=== PATIENT | female | born 1995 | race Caucasian/White ===

== ENCOUNTER → 2018-09-08 16:36 | Outpatient (CLI) | payer OTHER, SELFPAY ==
[2016-09-11 04:17] VITALS: BMI 28.2
== END ==
PROVIDERS: Family Provider Family Medicine; PCP Family Medicine; Referring Provider Obstetrics & Gynecology; Visit Provider Obstetrics & Gynecology
DX: Z12.4 Encounter for screening for malignant neoplasm of cervix (principal)

== ENCOUNTER 2021-04-17 15:24 | Emergency (ER) | payer OTHER, SELFPAY ==
[2021-04-17 15:25] VITALS: BP 148/82; PULSE 80; RESP 16; TEMP 36; O2SAT 100; BMI 25.9
[2021-04-17 15:27] VITALS: BP 148/82; PULSE 84; RESP 16; TEMP 36; O2SAT 100
--- NOTE | 2021-04-17 15:31 | EKG12_ITS ---
Test Reason : CP Blood Pressure : / mmHG Vent. Rate : 072 BPM Atrial Rate : 072 BPM P-R Int : 156 ms QRS Dur : 074 ms QT Int : 378 ms P-R-T Axes : 063 078 045 degrees QTc Int : 413 ms Normal sinus rhythm Normal ECG Confirmed by ANA MARC, DAWSON ([id number]), legal editor ALEXIA MONTENEGRO ([id number]) on 04/20/2021 10:58:46 AM Referred By: BB/FELICITY Confirmed By:DAWSON PEREZ MD
--- NOTE | 2021-04-17 16:09 | RAD_ITS ---
STUDY: X-RAY CHEST REASON FOR EXAM: Female, 26 years old. Atypical chest pain TECHNIQUE: Single AP portable view of the chest. COMPARISON: None. FINDINGS: The lungs are clear and expanded. There is no demonstrated pleural abnormality. Normal size heart. Normal mediastinum and marielle. Normal visualized pulmonary arteries. Normal visualized aortic arch and descending thoracic aorta. Normal visualized thoracic spine. Normal visualized ribs, clavicles, and shoulders. There is no demonstrated abnormality of the visualized soft tissue structures of the upper abdomen. RAD/Chest 1 View (Portable) IMPRESSION: Normal x-ray examination of the chest. Electronically Signed: Zaheer Miguel MD at 16:23 EST ,
--- NOTE | 2021-04-17 16:57 | EDS_ITS ---
HPI History of Present Illness Chief Complaint: Chest Pain Narrative Narrative: 26-year-old female otherwise healthy presenting with chest pain on the right side. She states started about 4 days ago. Is been intermittent. She describes it as sharp. She denies any diaphoresis, nausea, shortness of breath. She is unsure if she did something at work pulling something. She states it radiates into her right shoulder blade. Patient has no history of DVT/PE. She is on control. Patient states she asked her mother who is a nurse what to do and she told her to go to the emergency room because her mother has a history of a blood clot. Patient does not know if it was a DVT or a PE. She does not know if it is provoked or unprovoked. Patient does not have any cardiac history. No fever, chills, cough. PFSH PFSH Medical History Non-smoker Home Medications ferrous sulfate [Iron (ferrous sulfate)] 325 mg PO BID 09/08/16 [History Last Taken 09/10/16] vit,[id number] [Prenatabs FA] 1 tab PO DAILY 09/08/16 [History Last Taken 09/10/16] Ibuprofen [Motrin] 800 mg PO TID PRN PRN #30 tab 09/11/16 [Rx Last Taken Unknown] oxycodone 5 - 10 mg PO Q4H PRN PRN #30 tab 09/11/16 [Rx Last Taken Unknown] Allergy/AdvReac Type Severity Reaction Status Date / Time No Known Allergies Allergy Verified 09/08/16 20:39 Social History Smoking Status: Never smoker ROS ROS ED Constitutional Constitutional ED: Denies chills or fever(s) Eyes Eyes: Denies blurry vision or change in vision ENT ENT ED: Denies rhinorrhea or sore throat Cardiovascular Cardiovascular: Reports as per HPI Respiratory/Chest Respiratory/Chest: Denies cough, dyspnea or dyspnea on exertion Gastrointestinal Gastrointestinal: Denies abdominal pain, constipation, diarrhea, nausea or vomiting Genitourinary Genitourinary ED: Denies dysuria or hematuria Musculoskeletal Musculoskeletal: Denies arthralgias or myalgias Integumentary Denies Abrasions or rash Neurologic Neurologic: Denies headache(s), paresthesias or weakness Psychiatric Psychiatric: Denies anxiety or depression EXAM Physical Exam Const Vital Signs: 04/17/21 15:25 04/17/21 15:27 04/17/21 17:33 Temperature 96.8 F L 96.8 F L Temperature Source Temporal Temporal Pulse Rate 80 84 Respiratory Rate 16 16 Blood Pressure 148/82 H 148/82 H Blood Pressure Mean 104 104 Pulse Ox 100 100 100 Oxygen Delivery Method Room Air Room Air Room Air 04/17/21 17:35 04/17/21 19:06 Temperature Temperature Source Pulse Rate 80 70 Respiratory Rate 17 14 Blood Pressure 125/80 H 141/93 H Blood Pressure Mean 95 Pulse Ox 97 100 Oxygen Delivery Method Room Air Positive well nourished General Appearance ED: NAD; Negative for pallor HEENT Reports moist mucous membranes normocephalic and atraumatic Eyes PERRL and EOMs intact bilaterally General Eye ED: Negative for pale conjunctiva or scleral icterus Resp normal respiratory effort Effort and Inspection: respiratory distress Cardio regular rate and regular rhythm Neuro oriented x3 and CN's II-XII intact bilaterally Sensorium / Orientation: awake and alert Psych mental status grossly normal Skin no rashes or lesions noted General Skin Exam: Negative for jaundice or pallor Heart Score History: Slightly/Non-Suspicious ECG: Normal Age: </= 45 years Risk Factors: No Risk Factors Troponin: </= Normal Limit Score: 0 MDM MDM MDM Narrative Medical decision making narrative: Patient presenting with chest pain on the right side. She has no other associated symptoms. She is on control so I cannot PERC her. Clinically lower her oxygen 100%, respiratory rate 16, pulse 80. I have a low suspicion for PE and will obtain a D-dimer. EKG on my interpretation shows a sinus rhythm with a ventricular rate of 72 bpm without sign of ischemic change or dysrhythmia. Chest x-ray on my interpretation shows no acute cardiopulmonary process and the radiologist does agree. CBC, BMP are unremarkable. High-sensitivity troponin is normal 9. Patient is otherwise young and healthy and I have low suspicion for cardiac source and I do not believe she needs a repeat troponin. I did obtain a D-dimer which was elevated at 1.00 and she had a CTA of the chest which was negative for PE or dissection. There is no other acute process noted on the CTA interpreted by the radiologist. At this point I feel the patient is stable to be discharged home. It is recommended that she follow-up with her PCP. Impression: 1. Chest pain, noncardiac Lab Data Labs: Laboratory Results - last 24 hr 04/17/21 04/17/21 04/17/21 17:29 17:29 17:29 WBC 7.3 RBC 4.04 L Hgb 11.7 L Hct 36.1 L MCV 89.4 MCH 29.0 MCHC 32.4 RDW Std Deviation 45.0 H RDW Coeff of Sharee 13.7 Plt Count 197 MPV 11.0 Immature Gran % (Auto) 0.300 Neut % (Auto) 49.5 Lymph % (Auto) 42.5 H [place] % (Auto) 6.2 Eos % (Auto) 1.2 Baso % (Auto) 0.3 Absolute Neuts (auto) 3.6 Absolute Lymphs (auto) 3.09 Nucleated RBC % 0 D-Dimer Quant (PE/DVT) 1.00 H* Sodium 136 Potassium 3.4 L Chloride 107 Carbon Dioxide 24.0 Anion Gap 5 BUN 9 Creatinine 0.70 Estim Creat Clear Calc 102.51 Est GFR (MDRD) Af Amer 132 Est GFR (MDRD) Non-Af 109 BUN/Creatinine Ratio 12.9 Glucose 87 Calcium 8.7 Troponin I High Sens 9 Radiography Diagnostic Testing: Clinical Impression(s) from Imaging Studies Chest X-Ray 04/17/21 16:09 IMPRESSION: Normal x-ray examination of the chest. Electronically Signed: Zaheer Miguel MD at 16:23 EST Reading Location ID and State: [address] [place] [address] , Service support , Chest CTA 04/17/21 18:21 IMPRESSION: Normal CTA chest examination, without a demonstrated pulmonary embolism or arterial dissection. Electronically Signed: Joseph Kessler DO at 18:54 EST Reading Location ID and State: [address] [place] [address] Tel [phone], Service support , Discharge Plan Triage Chief Complaint: Chest Pain ED Provider: Juan F Cardoza Dx/Rx/DC Orders Instructions: ED Chest Pain, Noncardiac Prescriptions: No Action ferrous sulfate [Iron (ferrous sulfate)] 325 MG tablet 325 mg PO BID RF: 0 [id number] [Prenatabs FA] 1 TABLET tablet 1 tab PO DAILY RF: 0 oxycodone 5 MG tablet 5 - 10 mg PO Q4H PRN PRN (Reason: Mod-Severe Pain (-11/16)) Qty: 30 RF: 0 Ibuprofen [Motrin] 800 MG tablet 800 mg PO TID PRN PRN (Reason: pain or cramping) Qty: 30 RF: 1 Primary Care Provider: Inge Mcgill Referrals: Inge Mcgill DO [Primary Care Provider] - Disposition Disposition: Home, Self Care Discharge Date/Time: 04/17/21 19:10
[2021-04-17 17:33] VITALS: O2SAT 100
[2021-04-17 17:35] VITALS: BP 125/80; PULSE 80; RESP 17; O2SAT 97
[2021-04-17 17:37] LABS: Absolute Lymphocyte Count 3.09 X10^3/uL (0.83-4.51); Absolute Neutrophil Count 3.6 X10^3/uL (2.0-7.7); Basophil# 0.02 X10^3/uL; Basophil% 0.3 % (0-1); Eosinophil# 0.09 X10^3/uL; Eosinophils% 1.2 % (0-5); Hematocrit 36.1 % (37-47); Hemoglobin 11.7 g/dL (12.0-15.0); Lymphocyte # 3.09 X10^3/ul (0.83-4.51); Lymphocyte % 42.5 % (19-41); Mean Corp Hgb Conc 32.4 g/dL (32-36); Mean Corpuscular Volume 89.4 fL (81-99); Monocyte# 0.45 X10^3/uL; Monocyte% 6.2 % (0-10); NRBC Flagged by Analyzer 0 % (0-5); Neutrophil % 49.5 % (47-70); Platelet Count 197 K/mm3 (150-450); RBC Distribution Width CV 13.7 % (11.6-14.6); Red Blood Count 4.04 M/mm3 (4.2-5.4); White Blood Count 7.3 K/mm3 (4.4-11.0)
[2021-04-17 17:50] LABS: Anion Gap 5 (5-15); BUN 9 mg/dL (7-18); BUN/Creat Ratio 12.9 RATIO (10-20); Calcium,Total 8.7 mg/dL (8.5-10.1); Chloride 107 mmol/L (98-107); EST Glomerular Filtration Rate 109 mL/min (>60); Est Glom Filt Rate - Afr Amer 132 mL/min (>60); Estimated Creatinine Clearance 102.51 ml/min; Glucose 87 mg/dL (74-106); Potassium 3.4 mmol/L (3.5-5.1); Sodium Level 136 mmol/L (136-145); Troponin-I HS 9 pg/mL (3.0-54.0)
--- NOTE | 2021-04-17 18:21 | CT_ITS ---
STUDY: CTA CHEST REASON FOR EXAM: Female, 26 years old. Chest pain. Right-sided chest pain for 4 days radiating into the back. Elevated d-dimer. RADIATION DOSAGE (If Supplied By Facility): CTDIvol = ( 3.45 ) mGy, DLP = ( 130.48 ) mGycm TECHNIQUE: The examination was performed with the intravenous administration of IV 100mL Isovue-370. Post-processing of the angiographic images was performed, with multiplanar reformation and 3D reconstruction. Individualized dose optimization techniques were used for this CT. COMPARISON: Chest, 04/17/2021. FINDINGS: Normal enhancement of the main pulmonary artery and right and left pulmonary arteries. Normal enhancement of the bilateral peripheral pulmonary arteries. There is no demonstrated pulmonary embolism. Normal thoracic aorta and visualized great vessels. There is no demonstrated aortic dissection. Normal heart and pericardium. Normal mediastinum. Normal hilar regions. Normal visualized trachea and bronchi. The lungs are well expanded. Normal pulmonary parenchyma. Normal pleura. Normal chest wall structures. Normal osseous structures. Normal visualized upper abdomen. CT/CTA Chest W/WO Contrast IMPRESSION: Normal CTA chest examination, without a demonstrated pulmonary embolism or arterial dissection. Electronically Signed: Joseph Kessler DO at 18:54 EST ,
[2021-04-17 19:06] VITALS: BP 141/93; PULSE 70; RESP 14; O2SAT 100
== END 2021-04-17 19:10 | disposition home or self-care (01) ==
PROVIDERS: Emergency Provider Student in an Organized Health Care Education/Training Program; PCP Family Medicine; Visit Provider Student in an Organized Health Care Education/Training Program
DX: R07.89 Other chest pain (principal)
CPT/HCPCS: 71045; 71275; 80048; 84484; 85025; 85379; 93005; 99284; Q9967; A4216

== ENCOUNTER → 2021-10-13 | Outpatient (CLI) | payer OTHER, SELFPAY ==
[2021-10-13 13:04] LABS: hCG Titer Quant., Serum 1 mIU/mL (1-3)
== END | disposition home or self-care (01) ==
LOC: WOBLAB 11:46
PROVIDERS: PCP Family Medicine; Visit Provider Obstetrics & Gynecology
DX: N91.2 Amenorrhea, unspecified (principal)
CPT/HCPCS: 36415; 84702; 86850; 86900; 86901

== ENCOUNTER → 2022-01-26 | Outpatient (CLI) | payer OTHER, SELFPAY ==
[2022-01-26 17:28] LABS: Absolute Lymphocyte Count 2.34 X10^3/uL (0.83-4.51); Basophil# 0.02 X10^3/uL; Basophil% 0.3 % (0-1); Eosinophil# 0.07 X10^3/uL; Eosinophils% 0.9 % (0-5); Hematocrit 38.6 % (37-47); Hemoglobin 12.3 g/dL (12.0-15.0); Lymphocyte # 2.34 X10^3/ul (0.83-4.51); Lymphocyte % 29.7 % (19-41); Mean Corp Hgb Conc 31.9 g/dL (32-36); Mean Corpuscular Hgb 28.8 pg (27.0-32.0); Mean Corpuscular Volume 90.4 fL (81-99); Mean Platelet Vol. 11.3 fl (6.2-12.0); Monocyte# 0.42 X10^3/uL; Monocyte% 5.3 % (0-10); NRBC Flagged by Analyzer 0 % (0-5); Neutrophil % 63.5 % (47-70); Platelet Count 230 K/mm3 (150-450); RBC Distribution Width CV 14.2 % (11.6-14.6); RBC Distribution Width SD 47.2 fl (35.1-43.9); Red Blood Count 4.27 M/mm3 (4.2-5.4); White Blood Count 7.9 K/mm3 (4.4-11.0)
[2022-01-26 19:23] LABS: HIV - WCH Non-Reactive (Nonreactive); Hepatitis B Surface Antigen Non-Reactive (Nonreactive); Hepatitis C Antibody Non-Reactive (Nonreactive); Rubella IgG Reactive (Nonreactive); Syphilis Antibodies Non-reactive
[2022-01-26 20:12] LABS: Chlamydia Trachomatis by PCR Negative (Negative); Neisserai gonorrhoeae by PCR Negative (Negative); Probe Check PASS; Sample Adequacy Control PASS; Specimen Processing Control PASS
[2022-01-28 16:24] LABS: V-Zoster IgG (Immunity) < 135 index (Immune >165)
[2022-02-04 21:09] LABS: HPV Reflexed? NOT INDICATED
== END | disposition home or self-care (01) ==
LOC: WOBLAB 15:27
PROVIDERS: PCP Family Medicine; Visit Provider Student in an Organized Health Care Education/Training Program
DX: Z34.81 Encounter for supervision of other normal pregnancy, first trimester (principal); Z11.3 Encounter for screening for infections with a predominantly sexual mode of transmission; Z12.4 Encounter for screening for malignant neoplasm of cervix
CPT/HCPCS: 36415; 85025; 86703; 86762; 86780; 86787; 86803; 87086; 87088; 87186; 87340; 87491; 87591; 88175; G0145

== ENCOUNTER → 2022-02-24 | Outpatient (CLI) | payer OTHER, MEDICAID, SELFPAY | END | disposition home or self-care (01) | LOC: LABSPEC 11:06 | PROVIDERS: PCP Family Medicine; Visit Provider Student in an Organized Health Care Education/Training Program | DX: R30.0 Dysuria (principal) | CPT/HCPCS: 87086; 87088 ==

== ENCOUNTER 2022-03-11 21:33 | Emergency (ER) | payer OTHER, MEDICAID, SELFPAY ==
[2022-03-11 21:34] VITALS: BP 130/99; PULSE 75; RESP 15; TEMP 36.4; O2SAT 98; BMI 25.3
--- NOTE | 2022-03-11 21:57 | ED.VIS.GI ---
HPI HPI - GI History of Present Illness Chief Complaint: GI Bleed Informant: patient Abdominal Pain/Flank Pain Onset: Hours (1) Context: Gradual Onset (after meal) Timing: Continuous Current Severity: Gone Maximum Severity: Moderate Worsened by: Nothing Relieved by: - (after vomiting) Nausea/Vomiting/Emesis GI Symptom: Positive for Nausea and Vomiting Quality: Positive for Nonbilious and Blood streaks (possiblly) Episodes: 1 Diarrhea/Melena/Hematochezia GI Symptom: Positive for - (last BM today, nml); Negative for Diarrhea, Melena or Hematochezia Associated Symptoms Associated Symptoms: Negative for Dysuria, Frequency, Hematuria or Urgency Narrative Narrative: Patient is 12-13 weeks , she had an ultrasound verifying a single live intrauterine this past week. She has been having a lot of morning sickness but that has been much better now for the past 2 weeks. Tonight she had some cheese bread, shortly thereafter she had some upper abdominal discomfort in the middle followed by 1 episode of vomiting, there was some red in it that look like several chunks of blood clots. She states she had marinara sauce with her cheese bread. She states her mother looked at it and said it was doubtful that it was the marinara that it was more likely blood. Patient states her abdominal discomfort is better now, she feels a little nauseated but not much. She states she was diagnosed with gastritis versus peptic ulcer in the past, and she was put on Prilosec this is before she was , she never had an EGD or hematemesis/bright red blood per rectum or melena and she has had none of that now. PFSH PFSH Medical History Non-smoker Medical History no medical history Home Medications ferrous sulfate 325 mg (65 mg iron) tablet (Iron (ferrous sulfate)) 325 mg PO BID anemia 09/08/16 [History Last Taken 09/10/16] vits,calcium no.78-iron fumarate-folic acid 29 mg-1 mg tablet (Prenatabs FA) 1 tab PO DAILY 09/08/16 [History Last Taken 09/10/16] Ibuprofen [Motrin] 800 mg PO TID PRN PRN pain or cramping #30 tabs 09/11/16 [Rx Last Taken Unknown] oxycodone 5 mg tablet 5 - 10 mg PO Q4H PRN PRN Mod-Severe Pain (4-11/16) #30 tabs 09/11/16 [Rx Last Taken Unknown] famotidine 40 mg tablet 40 mg PO DAILY #14 tabs 03/11/22 [Rx Last Taken Unknown] Allergy/AdvReac Type Severity Reaction Status Date / Time No Known Allergies Allergy Verified 03/11/22 21:34 Social History Smoking Status: Never smoker ROS ROS ED Constitutional Constitutional ED: Denies chills or fever(s) Eyes Eyes: Denies change in vision or diplopia ENT ENT ED: Denies rhinorrhea or sore throat Cardiovascular Cardiovascular: Denies chest pain or palpitations Respiratory/Chest Respiratory/Chest: Denies cough or dyspnea Gastrointestinal Gastrointestinal: Reports as per HPI, abdominal pain, nausea and vomiting; Denies diarrhea Genitourinary Genitourinary ED: Reports other Details: No vaginal bleeding or discharge ; Denies dysuria or hematuria Musculoskeletal Musculoskeletal: Denies back pain or neck pain Integumentary Denies abscess or rash Neurologic Neurologic: Denies headache(s), paresthesias or weakness Psychiatric Psychiatric: Denies anxiety or suicidal thoughts EXAM Physical Exam Const Vital Signs: 03/11/22 21:34 Temperature 97.6 F L Temperature Source Temporal Pulse Rate 75 Respiratory Rate 15 Blood Pressure 130/99 H Blood Pressure Mean 109 Pulse Ox 98 Oxygen Delivery Method Room Air Positive well nourished and well developed Constitutional Narrative: Well-appearing General Appearance ED: well developed and NAD HEENT Reports moist mucous membranes normocephalic and atraumatic Eyes PERRL and EOMs intact bilaterally Neck full ROM and supple Resp normal respiratory effort and clear to auscultation bilaterally Cardio regular rate, regular rhythm and no murmurs Rate: Negative for tachycardic GI non-tender and non-distended Auscultation: normoactive bowel sounds Palpation: soft Back/Spine no CVA tenderness General Back: other FROM Extremity normal to inspection General Extremety ED: Negative for edema, pulses abnormal or tenderness General Extremity: Negative for edema or pulses abnormal Neuro oriented x3, CN's II-XII intact bilaterally and no sensory deficits noted Sensorium / Orientation: awake and alert Motor Exam: strength 5/5 throughout Skin no rashes or lesions noted and no wounds MDM MDM MDM Narrative Medical decision making narrative: CBC and BMP obtained, patient is not anemic from any acute blood loss, and her chemistry is normal. This basically suggest that she is not having hemodynamically significant upper GI bleeding, it does not rule it out. I discussed that with her. It certainly is possible that she did have gastritis with bleeding and it is also possible that she vomited up marinara and no blood. Regardless I think it would be reasonable to put her on Pepcid for least 2 weeks and have her follow-up, given that she is . She was given a dose here, she remained clinically and hemodynamically stable for discharge given a prescription. She is comfortable with that plan. Lab Data Attestation: I reviewed the patient's lab results. Labs: Laboratory Results - last 24 hr 03/11/22 03/11/22 22:15 22:15 WBC 7.9 RBC 4.11 L Hgb 12.1 Hct 36.3 L MCV 88.3 MCH 29.4 MCHC 33.3 RDW Std Deviation 45.2 H RDW Coeff of Sharee 14.0 Plt Count 192 MPV 11.0 Immature Gran % (Auto) 0.400 Neut % (Auto) 66.5 Lymph % (Auto) 27.0 [place] % (Auto) 5.2 Eos % (Auto) 0.5 Baso % (Auto) 0.4 Absolute Neuts (auto) 5.2 Absolute Lymphs (auto) 2.13 Nucleated RBC % 0 Sodium 138 Potassium 3.9 Chloride 108 H Carbon Dioxide 24.0 Anion Gap 6 BUN 10 Creatinine 0.54 L Estim Creat Clear Calc 131.74 Est GFR (MDRD) Af Amer 175 Est GFR (MDRD) Non-Af 145 BUN/Creatinine Ratio 18.4 Glucose 101 Calcium 8.6 Discharge Plan Triage Chief Complaint: GI Bleed ED Provider: Oli Martinez Dx/Rx/DC Orders Clinical Impression: Hematemesis, First trimester Instructions: ED Gastritis (Adult), ED Upper GI Bleeding (Stable) Prescriptions: New famotidine 40 mg tablet 40 mg PO DAILY Qty: 14 0RF No Action ferrous sulfate [Iron (ferrous sulfate)] 325 MG tablet 325 mg PO BID vit,[id number] [Prenatabs FA] 1 TABLET tablet 1 tab PO DAILY oxycodone 5 MG tablet 5 - 10 mg PO Q4H PRN PRN (Reason: Mod-Severe Pain (4-11/16)) Qty: 30 0RF Ibuprofen [Motrin] 800 MG tablet 800 mg PO TID PRN PRN (Reason: pain or cramping) Qty: 30 1RF Primary Care Provider: Inge Mcgill Referrals: Inge Mcgill DO [Primary Care Provider] - 1 Week Disposition Disposition: Home, Self Care
[2022-03-11] MEDS: Famotidine 20 MG Tablet 40 MG PO (22:14)
[2022-03-11] MEDS: Ondansetron ODT 4 MG Tablet 8 MG PO (22:14)
[2022-03-11 22:24] LABS: Absolute Lymphocyte Count 2.13 X10^3/uL (0.83-4.51); Absolute Neutrophil Count 5.2 X10^3/uL (2.0-7.7); Basophil# 0.03 X10^3/uL; Basophil% 0.4 % (0-1); Eosinophil# 0.04 X10^3/uL; Eosinophils% 0.5 % (0-5); Hematocrit 36.3 % (37-47); Hemoglobin 12.1 g/dL (12.0-15.0); Lymphocyte # 2.13 X10^3/ul (0.83-4.51); Mean Corp Hgb Conc 33.3 g/dL (32-36); Mean Corpuscular Hgb 29.4 pg (27.0-32.0); Mean Corpuscular Volume 88.3 fL (81-99); Monocyte# 0.41 X10^3/uL; Monocyte% 5.2 % (0-10); NRBC Flagged by Analyzer 0 % (0-5); Neutrophil # 5.24 X10^3/uL (2.7-7.7); Neutrophil % 66.5 % (47-70); Platelet Count 192 K/mm3 (150-450); RBC Distribution Width SD 45.2 fl (35.1-43.9); Red Blood Count 4.11 M/mm3 (4.2-5.4); White Blood Count 7.9 K/mm3 (4.4-11.0)
[2022-03-11 22:35] LABS: Anion Gap 6 (5-15); BUN 10 mg/dL (7-18); BUN/Creat Ratio 18.4 RATIO (10-20); Calcium,Total 8.6 mg/dL (8.5-10.1); Chloride 108 mmol/L (98-107); Creatinine, Serum 0.54 mg/dL (0.55-1.02); EST Glomerular Filtration Rate 145 mL/min (>60); Est Glom Filt Rate - Afr Amer 175 mL/min (>60); Estimated Creatinine Clearance 131.74 ml/min; Glucose 101 mg/dL (74-106); Potassium 3.9 mmol/L (3.5-5.1); Sodium Level 138 mmol/L (136-145)
== END 2022-03-11 22:50 | disposition home or self-care (01) ==
PROVIDERS: Emergency Provider Emergency Medicine; PCP Family Medicine; Visit Provider Emergency Medicine
DX: O99.611 Diseases of the digestive system complicating pregnancy, first trimester (principal); O21.0 Mild hyperemesis gravidarum; Z3A.12 12 weeks gestation of pregnancy; K92.0 Hematemesis
CPT/HCPCS: 80048; 85025; 99283; A4216

== ENCOUNTER → 2022-06-14 | Outpatient (CLI) | payer MEDICAID, SELFPAY ==
[2022-06-14 11:50] LABS: Absolute Lymphocyte Count 2.07 X10^3/uL (0.83-4.51); Absolute Neutrophil Count 8.4 X10^3/uL (2.0-7.7); Basophil# 0.03 X10^3/uL; Basophil% 0.3 % (0-1); Eosinophil# 0.08 X10^3/uL; Eosinophils% 0.7 % (0-5); Hematocrit 34.4 % (37-47); Hemoglobin 11.1 g/dL (12.0-15.0); Lymphocyte # 2.07 X10^3/ul (0.83-4.51); Lymphocyte % 18.4 % (19-41); Mean Corp Hgb Conc 32.3 g/dL (32-36); Mean Platelet Vol. 11.8 fl (6.2-12.0); Monocyte# 0.59 X10^3/uL; Monocyte% 5.2 % (0-10); NRBC Flagged by Analyzer 0 % (0-5); Neutrophil # 8.44 X10^3/uL (2.7-7.7); Neutrophil % 74.8 % (47-70); Platelet Count 200 K/mm3 (150-450); RBC Distribution Width CV 13.6 % (11.6-14.6); RBC Distribution Width SD 46.8 fl (35.1-43.9); White Blood Count 11.3 K/mm3 (4.4-11.0)
[2022-06-14 11:54] LABS: Glucose Challenge Gest 1H 50g 103 mg/dL (70-140)
[2022-06-14 12:18] LABS: Syphilis Antibodies Non-reactive
== END | disposition home or self-care (01) ==
PROVIDERS: PCP Family Medicine; Visit Provider Nurse Practitioner Women's Health
DX: Z34.82 Encounter for supervision of other normal pregnancy, second trimester (principal); R73.02 Impaired glucose tolerance (oral)
CPT/HCPCS: 36415; 82950; 85025; 86780

== ENCOUNTER → 2022-08-02 | Outpatient (CLI) | payer MEDICAID, SELFPAY ==
--- NOTE | 2022-08-02 10:57 | US_ITS ---
STUDY: ULTRASOUND BREAST - RIGHT REASON FOR EXAM: Female, 27 years old. Palpable lump in the inferior aspect of the alveolus of the right breast. Patient is 33 weeks . TECHNIQUE: Axial and longitudinal images of the RIGHT breast were performed with a high resolution ultrasound transducer. # OF IMAGES: 11 COMPARISON: None. FINDINGS: RIGHT Breast: The retroareolar region of the right breast was examined with ultrasound. There is evidence of dilated subareolar ducts. US/Breast Limited Unilateral IMPRESSION: Dilated subareolar ducts. ASSESSMENT CATEGORY: BIRADS Category 2: Benign. A letter regarding these results will be sent to the patient by the facility within 30 days. Electronically Signed: Meek Kemp MD at 9:55 EDT ,
== END | disposition home or self-care (01) ==
LOC: OPUS 10:49
PROVIDERS: PCP Family Medicine; Referring Provider Student in an Organized Health Care Education/Training Program; Visit Provider Student in an Organized Health Care Education/Training Program
DX: N63.15 Unspecified lump in the right breast, overlapping quadrants (principal)
CPT/HCPCS: 76642

== ENCOUNTER → 2022-08-13 | Outpatient (CLI) | payer MEDICAID, SELFPAY | END | disposition home or self-care (01) | LOC: LABSPEC 14:09 | PROVIDERS: PCP Family Medicine; Visit Provider Obstetrics & Gynecology | DX: N39.0 Urinary tract infection, site not specified (principal) | CPT/HCPCS: 87077; 87086; 87088; 87186 ==

== ENCOUNTER → 2022-08-24 | Outpatient (CLI) | payer MEDICAID, SELFPAY ==
[2022-08-24 11:45] LABS: Absolute Lymphocyte Count 1.63 X10^3/uL (0.83-4.51); Absolute Neutrophil Count 6.5 X10^3/uL (2.0-7.7); Basophil# 0.02 X10^3/uL; Basophil% 0.2 % (0-1); Eosinophil# 0.05 X10^3/uL; Eosinophils% 0.6 % (0-5); Hemoglobin 10.6 g/dL (12.0-15.0); Lymphocyte # 1.63 X10^3/ul (0.83-4.51); Lymphocyte % 18.7 % (19-41); Mean Corp Hgb Conc 31.2 g/dL (32-36); Mean Corpuscular Hgb 26.8 pg (27.0-32.0); Mean Corpuscular Volume 86.1 fL (81-99); Mean Platelet Vol. 12.3 fl (6.2-12.0); Monocyte# 0.42 X10^3/uL; Monocyte% 4.8 % (0-10); NRBC Flagged by Analyzer 0 % (0-5); Neutrophil # 6.52 X10^3/uL (2.7-7.7); Neutrophil % 74.9 % (47-70); Platelet Count 191 K/mm3 (150-450); RBC Distribution Width CV 13.7 % (11.6-14.6); RBC Distribution Width SD 42.6 fl (35.1-43.9); Red Blood Count 3.95 M/mm3 (4.2-5.4); White Blood Count 8.7 K/mm3 (4.4-11.0)
[2022-08-24 12:13] LABS: Syphilis Antibodies Non-reactive
== END | disposition home or self-care (01) ==
LOC: WOBLAB 11:03
PROVIDERS: PCP Family Medicine; Visit Provider Student in an Organized Health Care Education/Training Program
DX: Z34.83 Encounter for supervision of other normal pregnancy, third trimester (principal)
CPT/HCPCS: 36415; 85025; 86780; 87081

== ENCOUNTER 2022-09-14 05:00 | Inpatient (IN) | payer MEDICAID, SELFPAY ==
[2022-09-14] VITALS (20 sets, daily range): BP systolic 105–128; BP diastolic 52–84; PULSE 65–118; RESP 14–16; TEMP 36.1–36.6; O2SAT 94–100; BMI 28.8
[2022-09-14] MEDS: Lactated Ringers 1,000 ML 999 ML IV ×2 (05:20→16:08)
[2022-09-14 05:36] LABS: Absolute Lymphocyte Count 2.57 X10^3/uL (0.83-4.51); Absolute Neutrophil Count 5.6 X10^3/uL (2.0-7.7); Basophil# 0.01 X10^3/uL; Basophil% 0.1 % (0-1); Eosinophil# 0.07 X10^3/uL; Eosinophils% 0.8 % (0-5); Hematocrit 31.7 % (37-47); Hemoglobin 10.3 g/dL (12.0-15.0); Lymphocyte # 2.57 X10^3/ul (0.83-4.51); Lymphocyte % 29.8 % (19-41); Mean Corp Hgb Conc 32.5 g/dL (32-36); Mean Corpuscular Hgb 26.4 pg (27.0-32.0); Mean Corpuscular Volume 81.3 fL (81-99); Mean Platelet Vol. 12.4 fl (6.2-12.0); Monocyte# 0.36 X10^3/uL; Monocyte% 4.2 % (0-10); NRBC Flagged by Analyzer 0 % (0-5); Neutrophil # 5.58 X10^3/uL (2.7-7.7); Neutrophil % 64.8 % (47-70); Platelet Count 203 K/mm3 (150-450); RBC Distribution Width CV 14.9 % (11.6-14.6); RBC Distribution Width SD 43.5 fl (35.1-43.9); White Blood Count 8.6 K/mm3 (4.4-11.0)
[2022-09-14] MEDS: Acetaminophen 500 MG Tablet 1000 MG PO ×3 (05:51→17:56)
[2022-09-14] MEDS: Lactated Ringers 1,000 ML 150 ML IV (06:23)
[2022-09-14 06:41] LABS: Syphilis Antibodies Non-reactive
[2022-09-14] MEDS: Sodium Citrate/Citric Acid 30 ML UDC PO (07:09)
--- NOTE | 2022-09-14 07:13 | PCM.HP.BLA ---
History and Physical Date of Admission: 09/14/22 HPI: 27-year-old G2, P1 at 39/1 weeks, FARAZ 09/20/2022 by first trimester ultrasound, admitted for repeat section. Denies regular contractions, leaking fluid, vaginal bleeding. Reports movement. Denies headache or vision changes, chest pain or shortness of breath, nausea or vomiting, diarrhea constipation, fevers or chills. complicated by: Varicella nonimmune [employer]JUSTER history: G1: for nonreassuring heart tones G2: Current Medical history: Anxiety and depression Surgical history: section Family history: Noncontributory Social history: Denies tobacco, alcohol, drug use Allergies: NKDA Medications: PNV Review of system: Negative otherwise stated above Physical exam: Vitals 128/84, HR 102, RR 14, Temp 97.2F, O2 Saturation 98% RA General: No acute distress resting comfortably in bed HEENT: Normal cephalic/atraumatic Cardiorespiratory: No increased effort Abdomen: Soft, nontender, Gravid Extremities: Minimal edema Neurologic: Cranial nerves II through XII grossly intact, no focal deficits Musculoskeletal: Moves all extremities heart rate: 135/mod bogdan/+accel/no decel [place]: quiet Assessment/plan: 27-year-old G2, P1 at 39/1 weeks, FARAZ 09/20/2022 by first trimester ultrasound, admitted for repeat section. complicated by: Varicella nonimmune. ?For repeat section. 2 g Ancef preoperatively. All risk, benefits, alternatives were discussed with patient. Risks include but are not limited to: Risk of bleeding to the blood transfusion, infection, injury to surrounding tissue including bowel/bladder potentially requiring prolonged Burgos catheter use, VTE, ICU admission. Patient aware and consented.
--- NOTE | 2022-09-14 07:18 | OP.PCM_ITS ---
Maternal Data Information Final FARAZ: 09/20/22 Final FARAZ Source: US <20 weeks Details Operative Information Date of Procedure: 09/14/22 Pre-Operative Diagnosis: Polanco intrauterine , repeat section Post-Operative Diagnosis: Polanco intrauterine , repeat section Indications for : Repeat Elective Indications Narrative: 27-year-old G2, P1 at 39/1 weeks, FARAZ 09/20/2022 by first trimester ultrasound, admitted for repeat section. complicated by: Varicella nonimmune. All risk, benefits, alternatives were discussed with patient. Risks include but are not limited to: Risk of bleeding to the blood transfusion, infection, injury to surrounding tissue including bowel/bladder potentially requiring prolonged Burgos catheter use, VTE, ICU admission. Patient aware and consented. Classification: Scheduled Procedure Type: low transverse audiology assistant #1: Eusebio Machado Type of Anesthesia: Spinal Antibiotic Given: Ancef 2 grams IV x1 Estimated Blood Loss: 700cc Fluids Replaced: 1000cc IVF Findings Description of Procedure: Procedure: Patient taken to the operating room and spinal anesthesia placed. Patient placed in the supine position and prepped and draped in usual sterile fashion. Pfannenstiel skin incision made with scalpel and carried down through subcutaneous tissue. Fascia nicked on either side of the midline extended bilaterally using Yu scissors. Ree clamps were superior fascial edge which was tented up and underlying rectus muscles were dissected off bluntly and sharply at midline using Yu scissors. Ree clamps moved inferior fascial edge and rectus muscles were dissected off in a similar fashion. Peritoneum entered bluntly. Bladder blade placed. Vesicouterine peritoneum noted to be high on the uterus, bladder flap created using Metzenbaum scissors. Low transverse uterine incision made with scalpel and extended bluntly. Amniotomy light meconium. Hand placed into the uterine cavity and had elevated to the level of the hysterotomy. Head delivered followed by body with the assistance of gentle fundal pressure. Nuchal cord x 1, loose, reduced. Cord clamped and cut. Baby to nursing. Manual extraction of placenta. Uterus cleared of all clots. Hysterotomy closed with a running stitch followed by second vertical imbricating stitch. Left inferior extension noted, closed with [id number] suture and running suture. Hemostatic. Uterus replaced into the abdominal cavity. Hemostasis achieved with Bovie and 1 lnvgvy-oh-[id number] stitch over the left extension. Romy placed. Peritoneum closed in a running stitch. Fascia closed with a running stitch. Subcutaneous tissue irrigated. Subcutaneous tissue reapproximated with suture. Skin closed with a running subcuticular stitch. At the end of the procedure all needle, lap, sponge counts were correct. UOP: 150cc clear yellow urine A Gender: Male (1 minute): 9 (5 minute): 10 Delayed Cord Clamping: Yes Complications Complications: None
[2022-09-14] MEDS: Cefazolin 2 GM in 0.9% Normal Saline 100 ML IV (07:30)
[2022-09-14] MEDS: Oxytocin 15 Units/NS 250ml 15 UNITS/250 ML IV.SOLN 83 UNITS IV (08:35)
[2022-09-14] MEDS: Ketorolac 30 MG/ML Syringe IV ×3 (09:01→20:22)
[2022-09-14] MEDS: Senna/Docusate Sodium 1 Tablet PO (11:46)
[2022-09-14] MEDS: Lactated Ringers 1,000 ML 100 ML IV ×2 (11:46→17:09)
[2022-09-14] MEDS: Ondansetron 4 MG/2 ML Vial IV (15:38)
--- NOTE | 2022-09-14 16:55 | NURSING ---
This RN talked with patient about being a DNP with a password or limiting visitors due to CHEN Tee discussing the altered family concept in the room with the MOB and FOB. Patient expressed she has more support people but is fine with family of hers and the FOB family coming in. This RN discussed with patient that if she is uncomfortable with any visitors to let the current nurse at the time know and we will tell them to leave.
--- NOTE | 2022-09-14 18:09 | NURSING ---
This RN encouraging pt to eat. Pt has not eaten since before her 0700 section. Pt states i am scared to eat when her sister brought in food. This RN encouraged patient to eat to help make her feel better.
[2022-09-14] MEDS: Enoxaparin 40 MG/0.4 ML Syringe SC (20:23)
[2022-09-14] MEDS: 0.9% Saline Lock 10 ML Syringe IV (20:23)
[2022-09-15] VITALS: BP 107/46; PULSE 66; RESP 16; TEMP 36.4; O2SAT 97
[2022-09-15] MEDS: Acetaminophen 500 MG Tablet 1000 MG PO ×4 (00:02→19:56)
[2022-09-15] MEDS: Ketorolac 30 MG/ML Syringe IV (02:32)
[2022-09-15 04:00] VITALS: BP 96/55; PULSE 63; RESP 16; TEMP 36.1; O2SAT 98
--- NOTE | 2022-09-15 06:37 | PCM.PN.OB ---
Subjective Subjective Patient feeling well. Lochia minimal. Working on breast-feeding. Objective Data Objective Data Vital Signs: Vital Signs Temp Pulse Resp BP Pulse Ox O2 Del Method 96.9 F L 63 16 96/55 L 98 Room Air 09/15/22 04:00 09/15/22 04:00 09/15/22 04:00 09/15/22 04:00 09/15/22 04:00 09/15/22 04:00 Oxygen Delivery Method Room Air Weight: 73.8 kg Body Mass Index (BMI) 28.8 Intake & Output: Intake and Output for Last 24 Hours 09/13/22 09/14/22 09/15/22 23:59 23:59 23:59 Intake Total 3215.83 / 3215.83 Output Total 1800 / 1800 Balance 1415.83 / 1415.83 Lab / Micro Data Attestation: I reviewed the patient's lab results. 09/14/22 05:20 Labs: Laboratory Results - last 24 hr 09/14/22 05:20: Syphilis Total Ab Non-reactive, Blood Type O POSITIVE, Antibody Screen NEGATIVE Physical Exam Const alert, oriented x3 and no apparent distress HEENT normocephalic Head and Scalp: atraumatic Neck full ROM Resp normal respiratory effort Cardio regular rate GI normal to inspection, nondistended, normoactive bowel sounds GI Narrative: Uterus 2 cm below umbilicus, dressing clean and dry Back/Spine normal ROM Extremity normal to inspection Extremity Narrative: Minimal pedal edema Neuro no focal motor deficits and no sensory deficits noted Psych mental status grossly normal and affect normal Assessment & Plan (1) Other acute postprocedural pain: PLAN: Postop day 1 status post repeat section. Patient feeling well. Pain controlled. Labs pending. Breast-feeding. Discussed follow-up appointment. Discussed postoperative wound care. Discharge home today.
--- NOTE | 2022-09-15 06:39 | DCINST_ITS ---
Discharge Instructions Diet Discharge Diet: No restrictions Activity Discharge Activity: Return to Normal Activity and May Shower May resume sexual activity in: 4-6 weeks Weight Bearing Status: Weight bearing as tolerated Lifting Restrictions: No greater than 25 pounds Dressing / Incision Call your doctor if your incision/area has: Continuous Slow Oozing, Increased Redness and Swelling at the incision site Call your doctor if you observe: Fever of 101 or Higher, Change in Color, Inability to urinate, Using more than 1 pad per hour, Shortness of breath, Dizziness, Swelling in the ankles, Chest pain and Calf discomfort Remove Dressing in: 1 week Cleanse incision/area with: Soap & Water and Keep Dressing Clean & Dry Follow Up Care Please Follow Up With: Tanya Oconnor DO When: 2-week and 6-week visit Test Results: Test results from this visit will be discussed in further detail at your follow- up appointment, if applicable. Discharge Plan Admission Admit Date/Time: 09/14/22 05:00 Primary Reason for Your Visit: section Attending Provider: Tanya Oconnor Primary Care Provider: Inge Mcgill Discharge Orders/Prescriptions Prescriptions: New oxycodone 5 mg tablet 5 mg PO Q6H PRN (Reason: pain (scale score 7-10)) 4 Days Qty: 14 0RF Discontinued Prenatabs FA 1 TABLET tablet 1 tab PO DAILY Referrals / Follow Up: Inge Mcgill DO [Primary Care Provider] - Disposition Disposition (needs filled in before D/C Order can be placed): Home, Self Care
[2022-09-15 07:05] LABS: Hematocrit 26.4 % (37-47); Hemoglobin 8.5 g/dL (12.0-15.0); Mean Corp Hgb Conc 32.2 g/dL (32-36); Mean Corpuscular Hgb 26.9 pg (27.0-32.0); Mean Corpuscular Volume 83.5 fL (81-99); Mean Platelet Vol. 12.4 fl (6.2-12.0); Platelet Count 150 K/mm3 (150-450); RBC Distribution Width CV 14.7 % (11.6-14.6); RBC Distribution Width SD 45.1 fl (35.1-43.9); Red Blood Count 3.16 M/mm3 (4.2-5.4); White Blood Count 11.9 K/mm3 (4.4-11.0)
[2022-09-15 08:08] VITALS: BP 111/76; PULSE 62; RESP 16; TEMP 36.8; O2SAT 98
[2022-09-15] MEDS: Ibuprofen 600 MG Tablet PO ×3 (08:26→20:59)
--- NOTE | 2022-09-15 10:08 | CASEMGMT ---
Social Work Assessment Labor and Delivery Unit Patient Address:[facility] [address] [place] [id number] Phone number: [phone] Date of Referral: 09/14/22 Time of Referral:? 922 Referred By: Tanya Oconnor Date of Intervention: ?09/14/22? Time of Intervention:? 1300 Reason for Referral:? History of anxiety and depression Social work (sw) completed chart review and acknowledges social work consult entered due to mental health and maternal history of anxiety and depression. Sw presented to bedside and introduced self to mother of baby (VICKI- Verena). Father of baby (FOSoumya- Chalino Stevens) was asleep on couch during sw assessment. Sw completed psychosocial assessment, provided support and education and information on mental health resources local to MOB. History obtained from: medical records and MOB. ?? Household composition: Currently residing in the home is VICKI, her older daughter Erin Bang (6 years old) and now baby boyJed. Patient's parent/guardian status:? VICKI remains legally to Erin's father, but they have been for quite some time. MOB states that she and Erin's dad just realized they were better off as individuals and parents when they are not together. VICKI states that she tried to file for dissolution during her , however the court would not let her file while she was . MOB states that ALMITA (Chalino) and her were together for three years, living together for 2.5. MOB states that she got in early December last year, and she and ALMITA broke up in February. MOB states that the breakup is not what she wanted, and she is still hopeful that eventually they will be able to work through their diffrences and get back together.MOB states that it is hard at this time though because ALMITA already has a new girlfriend. Baby boy is first child to FOB. FOB has been staying at bedside with VICKI. Medical History: VICKI is 2, para 1- now 2. VICKI delivered baby via repeat at 39 weeks gestation. VICKI received routine care with [facility] during . MOB delivered baby boy, name Jed on 09/14/22 at 0746. Baby weighed 8lb 9oz and his apgars were 8 and 9 at one and five minutes of life respectfully. MOB states that she is breast feeding baby and it is going ok. MOB states that baby has been sleeping most of the day and she has to rouse him to wake to feed. Sw provided support and encouraged MOB to touch base with . Educational Status:MOB states that she completed high schoo, does not have any college education. FOSoumya also completed high school and went through EMT training. Financial Status: Both parents are gainfully employed outside of the home. MOB works at [employer] and FOB is a cannon fire direction specialist for [employer]. Infant Supplies:?VICKI states that she has obtained everything she needs for baby including: car seat, safe sleep space, clothes, diapers, wipes and she has a breast pump for home. ? Childcare/Caregiver(s):? VICKI reports that when she returns to work she has a friend that will babysit Jed and Erin. MOB states that she and FOB have not worked out the details of his visitation with baby. MOB states that FOB wants to wait for the paternity testing process to be finished and for the court to be involved to make arrangements revolving around visits. Transportation:??VICKI states that she has her drivers license and a reliable vehicle. No transportation barriers at this time. Programs/Agencies Involved: ???VICKI is connected to insurance through S and WIC. Sw encouraged MOB to apply for food stamps/ food benefits now that baby has been born and she is responsible for two dependents. VICKI expressed understanding and agreed to touch base when she has patient's social security card. Children Services/Legal Issues:?VICKI denies history with Children Services, no issues or concerns warranting a referral at this time. ?? Behavioral Health Issues: ??Mental Health History:?VICKI states that she has been diagnosed with anxiety and depression, and reports that she did experience depression following the of her daughter. Sw educated MOB on signs and symptoms of baby blues, anxiety and depression. MOB completed [place] Depression Scale and her score was a 10. Sw educated MOB and provided support. Sw encouraged VICKI to get connected to counseling suppports, given her high score and history of depression. Skip also explained it would be beneficial for VICKI to talk to someone given the current situation she is in with her ex/ FOB. MOB expressed understanding. ?? Substance Use History:?MOB denies substance use prior to and during . ? Family History:?MOB denies family history of substance use and/ or mental health.? Drug Screens: No urine screens observed in chart review. ?? Family/Social Stressors:? MOB states that the currnent situation with her ex/ FOB is the biggest stressor that she has. MOB states that she and her daughter's father (legally ) are civil and get along well to co-parent Erin. MOB states that it was stressful to learn that she was not able to file for divorce while she was , and states she is frustrated that they have to go through the paternity testing process. Sw provided support and utilized active listening. Support Systems: MOB states that she has a friend who is very supportive. And her parents are available to help her as needed. Depression/Shaken Baby/Safe Sleeping:? Sw educated and provided MOB with literature on signs and symptoms of baby blues and depression. MOB expressed understanding and said she will consider getting connected to mental health supports following discharge. Sw educated MOB on ABCs of safe sleep and shaken baby prevention. MOB expressed understanding regarding these topics. MOB states that she has a crib for baby to sleep in. ASSESSMENT:? MOB was talkative and at times tearful during sw assessment. MOB was open regarding the current situation that she is in with FOB. MOB expressed understanding of watching out for symptoms of baby blues and depression. MOB would greatly benefit from getting connected with community mental health supports. FOB was asleep during sw assessment. MOB states that she is safe at home and denies history of domestic violence or intimate partner violence. PLAN:? MOB and baby to be discharged when medically ready. ?No other services requested or indicated. Ksenia Tee, BENCH LATHE OPERATOR, MEDICAL AFFAIRS MANAGER
[2022-09-15] MEDS: Senna/Docusate Sodium 1 Tablet PO (13:28)
[2022-09-15] MEDS: SimETHICONE 80 MG Chewable Tablet PO (13:32)
[2022-09-15 13:38] VITALS: BP 115/71; PULSE 75; RESP 16; TEMP 36.7
[2022-09-15 20:00] VITALS: BP 115/75; PULSE 73; RESP 16; TEMP 37; O2SAT 98
[2022-09-15] MEDS: Enoxaparin 40 MG/0.4 ML Syringe SC (20:59)
[2022-09-16 01:10] VITALS: BP 118/70; PULSE 64; RESP 16; O2SAT 97
[2022-09-16] MEDS: Acetaminophen 500 MG Tablet 1000 MG PO ×2 (01:57→08:33)
[2022-09-16] MEDS: Ibuprofen 600 MG Tablet PO ×2 (03:11→09:51)
--- NOTE | 2022-09-16 08:16 | PCM.DC.BLA ---
Discharge Summary Date of Admission: 09/14/22 Date of Discharge: 09/16/22 Summary: Patient arrived on 09/14/2022 for scheduled repeat section. Repeat section on 09/14/2022 performed. Routine postoperative recovery and discharged home on 09/16/2022 Meaningful Use Info Meaningful Use Diagnoses (Choose all that apply): None applicable Discharge Plan Admission Admit Date/Time: 09/14/22 05:00 Primary Reason for Your Visit: section Attending Provider: Tanya Oconnor Primary Care Provider: Inge Mcgill Instructions Additional Instructions / Restrictions: Regular diet. Okay to shower. No tub baths for 2 weeks. No lifting over 25 pounds for 2 to 3 weeks. No intercourse for 6 to 8 weeks. Call if fevers, chills, chest pain, shortness of breath. Follow-up 2 weeks postoperatively Discharge Orders/Prescriptions Prescriptions: New oxycodone 5 mg tablet 5 mg PO Q6H PRN (Reason: pain (scale score 7-10)) 4 Days Qty: 14 0RF Discontinued Prenatabs FA 1 TABLET tablet 1 tab PO DAILY Referrals / Follow Up: Inge Mcgill DO [Primary Care Provider] - Disposition Disposition (needs filled in before D/C Order can be placed): Home, Self Care
--- NOTE | 2022-09-16 08:17 | PCM.PN.OB ---
Subjective Subjective No overnight complaints. Pain well-controlled Objective Data Objective Data Vital Signs: Vital Signs Temp Pulse Resp BP Pulse Ox O2 Del Method 98.6 F 64 16 118/70 97 Room Air 09/15/22 20:00 09/16/22 01:10 09/16/22 01:10 09/16/22 01:10 09/16/22 01:10 09/16/22 01:10 Oxygen Delivery Method Room Air Weight: 162 lb 11.218 oz Body Mass Index (BMI) 28.8 Intake & Output: Intake and Output for Last 24 Hours 09/14/22 09/15/22 09/16/22 23:59 23:59 23:59 Intake Total 3215.83 / 3215.83 1000 / 1000 Output Total 1800 / 1800 Balance 1415.83 / 1415.83 1000 / 1000 Lab / Micro Data 09/15/22 06:55 Physical Exam Const alert, oriented x3, no apparent distress, average body habitus, healthy appearing and well nourished HEENT normocephalic and moist oral mucous membranes Eyes PERRL Neck full ROM Resp normal respiratory effort, no retractions and no use of accessory muscles GI GI Narrative: Soft, nontender, bandage clean dry and intact Extremity normal to inspection, full ROM and no clubbing, cyanosis or edema Neuro moves all extremities and no focal motor deficits Psych mental status grossly normal, affect normal, speech normal and activity/motor behavior normal Assessment & Plan (1) Delivery by section: PLAN: Postop day 2 status post repeat section. Breast-feeding. Pain well-controlled. Okay to discharge home
[2022-09-16] MEDS: Senna/Docusate Sodium 1 Tablet PO (08:33)
[2022-09-16 08:43] VITALS: BP 128/90; PULSE 77; RESP 16; TEMP 36.6; O2SAT 98
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
== END 2022-09-16 12:38 | disposition home or self-care (01) | DRG 540 ==
PROVIDERS: Admitting Provider Student in an Organized Health Care Education/Training Program; PCP Family Medicine; Visit Provider Student in an Organized Health Care Education/Training Program
PROC: 10D00Z1 Extraction of Products of Conception, Low, Open Approach (ICD-10-PCS; CPT 59514; principal; 2022-09-14 07:15)
DX: O99.354 Diseases of the nervous system complicating childbirth (principal); O69.81X0 Labor and delivery complicated by cord around neck, without compression, not applicable or unspecified; Z3A.39 39 weeks gestation of pregnancy; Z37.0 Single live birth
CPT/HCPCS: 59025; 59050; 85025; 85027; 86780; 86850; 86900; 86901; 99221; 99252; J7120; A4216; G0378; G0463; J2405

== ENCOUNTER → 2024-02-21 | Outpatient (CLI) | payer MEDICAID, SELFPAY ==
[2024-02-21 12:41] LABS: Absolute Lymphocyte Count 2.53 X10^3/uL (0.83-4.51); Absolute Neutrophil Count 3.3 X10^3/uL (2.0-7.7); Basophil# 0.04 X10^3/uL; Basophil% 0.6 % (0-1); Eosinophil# 0.08 X10^3/uL; Eosinophils% 1.3 % (0-5); Hematocrit 39.8 % (37-47); Hemoglobin 12.7 g/dL (12.0-15.0); Lymphocyte # 2.53 X10^3/ul (0.83-4.51); Lymphocyte % 40.1 % (19-41); Mean Corp Hgb Conc 31.9 g/dL (32-36); Mean Corpuscular Hgb 28.5 pg (27.0-32.0); Mean Corpuscular Volume 89.2 fL (81-99); Mean Platelet Vol. 11.3 fl (6.2-12.0); Monocyte# 0.33 X10^3/uL; Monocyte% 5.2 % (0-10); NRBC Flagged by Analyzer 0 % (0-5); Neutrophil # 3.31 X10^3/uL (2.7-7.7); Neutrophil % 52.5 % (47-70); Platelet Count 258 K/mm3 (150-450); RBC Distribution Width CV 14.6 % (11.6-14.6); RBC Distribution Width SD 47.2 fl (35.1-43.9); Red Blood Count 4.46 M/mm3 (4.2-5.4); White Blood Count 6.3 K/mm3 (4.4-11.0)
[2024-02-21 13:29] LABS: ALB/GLOB Ratio 0.8 RATIO (0.9-2.4); AST(SGOT) 15 U/L (15-37); Alanine Aminotransfer ALT/SGPT 18 U/L (13-56); Albumin, Serum 3.4 g/dL (3.2-5.0); Alkaline Phosphatase 72 U/L (45-117); Anion Gap 5 (5-15); BUN 11 mg/dL (7-18); Calcium,Total 8.8 mg/dL (8.5-10.1); Chloride 108 mmol/L (98-107); Cholesterol 234 mg/dL (200); Creatinine, Serum 0.78 mg/dL (0.55-1.02); EST Glomerular Filtration Rate 93 mL/min (>60); Est Glom Filt Rate - Afr Amer 113 mL/min (>60); Globulin 4.5 g/dL (2.2-4.2); Glucose 93 mg/dL (74-106); High Density Lipoprotein 79 mg/dL; Potassium 4.1 mmol/L (3.5-5.1); Protein, Total 7.9 g/dL (6.4-8.2); Sodium Level 136 mmol/L (136-145); Triglycerides 114 mg/dL; Very Low Density Lipoprotein 23 mg/dL (5-40)
[2024-02-21 14:14] LABS: Hemoglobin A1c 5.1 % (3.8-5.6)
== END | disposition home or self-care (01) ==
LOC: VSLAB 09:49
PROVIDERS: PCP Nurse Practitioner Family
DX: Z13.6 Encounter for screening for cardiovascular disorders (principal); Z13.1 Encounter for screening for diabetes mellitus; Z13.220 Encounter for screening for lipoid disorders
CPT/HCPCS: 36415; 80053; 80061; 83036; 84443; 85025

== ENCOUNTER → 2024-03-14 | Outpatient (CLI) | payer MEDICAID, SELFPAY ==
[2024-03-21 08:22] LABS: HPV Reflexed? NOT INDICATED
== END | disposition home or self-care (01) ==
LOC: LABSPEC 14:15
PROVIDERS: PCP Nurse Practitioner Family; Visit Provider Nurse Practitioner Family
DX: Z12.4 Encounter for screening for malignant neoplasm of cervix (principal)
CPT/HCPCS: 88175; G0145